=== PATIENT | male | born 1955 | race Caucasian/White ===

== ENCOUNTER 2019-11-23 07:21 | Emergency (ER) | payer OTHER ==
[~2019-11-23] VITALS: Ht 190.5 cm; Wt 140.6 kg
[2019-11-23] MEDS ORDERED: SYNTHROID100 MC1 PO (07:35)
[2019-11-23] MEDS ORDERED: COZAAR 25 MG TA25 M1 PO (07:35)
[2019-11-23] MEDS ORDERED: HYDROCHLOROTHIA25 M2 PO (07:35)
[2019-11-23] MEDS ORDERED: SUPER THERAVIT1 EACH PO (07:36)
[2019-11-23] MEDS ORDERED: CONTRAVE ER 8-1 EACH PO (07:36)
[2019-11-23] MEDS ORDERED: NEURONTIN300 MG PO (07:36)
[2019-11-23] MEDS ORDERED: GLUCOSAMINE1000 MG PO (07:36)
[2019-11-23] MEDS ORDERED: CALCIUM CITRAT250 MG PO (07:37)
[2019-11-23] MEDS ORDERED: ASA81BEC PO (07:37)
[2019-11-23] MEDS ORDERED: VITAMIN D310 MC2 PO (07:38)
[2019-11-23] MEDS ORDERED: ZYRTEC10 M5 PO (07:38)
[2019-11-23 10:23] LABS: ABSOLUTE NEUTROPHILS 3.4 thou/uL (1.4-8.2); BASOPHILS 0.6 % (0.0-2.0); HEMATOCRIT 43.3 % (42.0-52.0); HEMOGLOBIN 14.4 gm/dL (14.0-18.0); MCH 27.2 pg (26.0-34.0); MCHC 33.3 g/dL (28.0-37.0); MCV 81.8 fL (80.0-100.0); MONOCYTES 7.5 % (1.0-8.0); PLATELET COUNT 208 thou/uL (150-400); POLYS 54.9 % (36.0-66.0); RBC 5.29 mil/uL (4.50-6.00); RDW 14.9 % (10.5-14.5); WBC 6.2 thou/uL (4.0-11.0)
[2019-11-23 10:27] LABS: CALCIUM 8.6 mg/dL (8.5-10.1); CREATININE 1.1 mg/dL (0.7-1.3); POTASSIUM 3.8 mmol/L (3.5-5.1)
[2019-11-23 10:56] LABS: URINE BILIRUBIN NEGATIVE (Negative); URINE BLOOD 3+ (Negative); URINE CLARITY CLOUDY; URINE COLOR YELLOW; URINE GLUCOSE-RANDOM* NEGATIVE (Negative); URINE KETONES NEGATIVE (Negative); URINE LEUKOCYTES-REFLEX NEGATIVE (Negative); URINE NITRITE-REFLEX NEGATIVE (Negative); URINE PROTEIN (DIPSTICK) NEGATIVE (Negative); URINE SPECIFIC GRAVITY >= 1.030 (1.005-1.035); URINE UROBILINOGEN 0.2 E.U./dl (0.2-1.0)
[2019-11-23 11:16] LABS: CALCIUM OXALATE 0-3 Few /LPF (None Seen); CASTS None Seen /LPF (None Seen); SQUAMOUS None Seen /LPF (0-3); URINE WBC-REFLEX 0-5 Rare /HPF (0-5)
[2019-11-23 11:17] LABS: AMORPHOUS URATES Many /LPF (None Seen); BACTERIA-REFLEX 1-9 Few /HPF (None Seen); URINE RBC 0-2 Rare /HPF (0-2)
[2019-11-23] MEDS ORDERED: NORCO 5-325 TA1 EAC1 PO (11:58)
[2019-11-23] MEDS ORDERED: ZOFRAN ODT4 MG PO (11:58)
[2019-11-23] MEDS ORDERED: FLOMAX0.4 MG PO (11:58)
[2019-11-23 12:06] VITALS: BP 152/83
== END 2019-11-23 12:13 | disposition home or self-care (01) ==
LOC: ER 07:21
PROVIDERS: Emergency Medicine
DX: N20.1 Calculus of ureter (principal)

== ENCOUNTER → 2020-05-13 | Outpatient (CLI) | payer OTHER ==
[~2020-05-13] MED LIST: ASA81BEC PO; CALCIUM CITRAT250 MG PO; CONTRAVE ER 8-1 EACH PO; COZAAR 25 MG TA25 M1 PO; FLOMAX0.4 MG PO; GLUCOSAMINE1000 MG PO; HYDROCHLOROTHIA25 M2 PO; NEURONTIN300 MG PO; NORCO 5-325 TA1 EAC1 PO; SUPER THERAVIT1 EACH PO; SYNTHROID100 MC1 PO; VITAMIN D310 MC2 PO; ZOFRAN ODT4 MG PO; ZYRTEC10 M5 PO
== END ==
LOC: CAT 15:51
PROVIDERS: ATTEND Family Medicine
DX: N28.1 Cyst of kidney, acquired (principal); N20.0 Calculus of kidney; K40.90 Unilateral inguinal hernia, without obstruction or gangrene, not specified as recurrent; M47.815 Spondylosis without myelopathy or radiculopathy, thoracolumbar region

== ENCOUNTER → 2020-05-20 | Outpatient (CLI) | payer OTHER | LOC: LAB 12:15 | PROVIDERS: ATTEND Anesthesiology | DX: Z01.812 Encounter for preprocedural laboratory examination (principal); Z20.828 Contact with and (suspected) exposure to other viral communicable diseases ==

== ENCOUNTER 2021-02-23 15:57 | Emergency (ER) | payer OTHER ==
[~2021-02-23] VITALS: Ht 190.5 cm; Wt 145.2 kg
[2021-02-23 16:18] LABS: URINE BILIRUBIN NEGATIVE (Negative); URINE BLOOD TRACE (Negative); URINE CLARITY CLEAR; URINE COLOR YELLOW; URINE GLUCOSE-RANDOM* NEGATIVE (Negative); URINE KETONES NEGATIVE (Negative); URINE LEUKOCYTES-REFLEX NEGATIVE (Negative); URINE NITRITE-REFLEX NEGATIVE (Negative); URINE PROTEIN (DIPSTICK) NEGATIVE (Negative)
[2021-02-23 18:26] LABS: ABSOLUTE NEUTROPHILS 4.1 thou/uL (1.4-8.2); BASOPHILS 0.4 % (0.0-2.0); EOSINOPHILS 6.2 % (0.0-3.0); HEMATOCRIT 39.9 % (42.0-52.0); HEMOGLOBIN 13.4 gm/dL (14.0-18.0); LYMPHOCYTES 27.3 % (24.0-44.0); MCH 26.3 pg (26.0-34.0); MCHC 33.7 g/dL (28.0-37.0); MCV 78.1 fL (80.0-100.0); MONOCYTES 8.3 % (1.0-8.0); PLATELET COUNT 224 thou/uL (150-400); POLYS 57.8 % (36.0-66.0); RBC 5.11 mil/uL (4.50-6.00); RDW 15.3 % (10.5-14.5); WBC 7.1 thou/uL (4.0-11.0)
[2021-02-23 18:30] LABS: CALCIUM 8.4 mg/dL (8.5-10.1); CREATININE 1.1 mg/dL (0.7-1.3); POTASSIUM 3.3 mmol/L (3.5-5.1)
[2021-02-23] MEDS ORDERED: HYDROCODON-ACE1 EAC7 PO (19:35)
[2021-02-23 19:39] VITALS: BP 158/89
== END 2021-02-23 19:40 | disposition home or self-care (01) ==
LOC: ER 15:57
PROVIDERS: Emergency Medicine; Nurse Practitioner
DX: N20.1 Calculus of ureter (principal); I10 Essential (primary) hypertension; Z87.442 Personal history of urinary calculi; Z98.84 Bariatric surgery status; Z98.890 Other specified postprocedural states; Z79.899 Other long term (current) drug therapy; Z79.82 Long term (current) use of aspirin

== ENCOUNTER 2021-07-20 20:55 | Emergency (ER) | payer OTHER ==
[~2021-07-20] VITALS: Ht 193 cm; Wt 140.6 kg
[~2021-07-20 20:55] MED LIST changes: +HYDROCODON-ACE1 EAC7 PO
[2021-07-20 21:06] LABS: URINE BILIRUBIN NEGATIVE (Negative); URINE BLOOD NEGATIVE (Negative); URINE CLARITY CLEAR; URINE COLOR YELLOW; URINE GLUCOSE-RANDOM* NEGATIVE (Negative); URINE KETONES NEGATIVE (Negative); URINE LEUKOCYTES-REFLEX NEGATIVE (Negative); URINE NITRITE-REFLEX NEGATIVE (Negative); URINE PROTEIN (DIPSTICK) NEGATIVE (Negative); URINE SPECIFIC GRAVITY 1.015 (1.005-1.035)
[2021-07-20 21:56] LABS: HEMATOCRIT 41.3 % (42.0-52.0); HEMOGLOBIN 13.3 gm/dL (14.0-18.0); MCH 25.5 pg (26.0-34.0); MCHC 32.2 g/dL (28.0-37.0); MCV 79.2 fL (80.0-100.0); RBC 5.22 mil/uL (4.50-6.00); RDW 15.7 % (10.5-14.5); WBC 9.2 thou/uL (4.0-11.0)
[2021-07-20 22:10] LABS: ALBUMIN 3.4 g/dL (3.4-5.0); CALCIUM 8.2 mg/dL (8.5-10.1); CREATININE 1.1 mg/dL (0.7-1.3); TOTAL BILIRUBIN 0.7 mg/dL (0.2-1.0); TOTAL PROTEIN 6.5 g/dL (6.4-8.2)
[2021-07-20 22:20] LABS: POTASSIUM 5.3 mmol/L (3.5-5.1)
[2021-07-20] MEDS ORDERED: NORCO5 PO (22:51)
[2021-07-20 22:57] VITALS: BP 145/90
== END 2021-07-20 23:08 | disposition home or self-care (01) ==
LOC: ER 20:55
PROVIDERS: Nurse Practitioner Family
DX: R10.9 Unspecified abdominal pain (principal); I10 Essential (primary) hypertension; Z79.82 Long term (current) use of aspirin; Z79.899 Other long term (current) drug therapy; Z87.442 Personal history of urinary calculi; Z98.84 Bariatric surgery status

== ENCOUNTER → 2021-08-17 | Day surgery (SDC) | payer OTHER ==
[~2021-08-17] VITALS: Ht 193 cm; Wt 140.6 kg
[~2021-08-17] MED LIST changes: +HYDROCHLOROTH12.5 M2 PO; +LOSARTAN POTAS100 MG PO; +NORCO5 PO; +SYNTHROID50 MCG PO; +TAMSULOSIN HCL0.4 MG PO; +TRAZODONE HCL50 MG PO; +VITAMIN B-1250 MC2 PO; +VITAMIN D350 MC3 PO
[2021-08-17 09:02] LABS: CALCIUM 8.2 mg/dL (8.5-10.1); POTASSIUM 3.7 mmol/L (3.5-5.1)
[2021-08-17 09:13] VITALS: BP 146/94
[2021-08-17 11:03] VITALS: BP 146/94
--- NOTE | 2021-08-18 11:11 | EKG ---
[place] [address] [facility] [place] [address] ELECTROCARDIOGRAM REPORT Name: SHAYNE MAR Room #: REG [facility].#: [id number] Admission: 08/17/21 Attend Phys: Florida Schroeder MD Discharge: Date of : 57 Report #: [id number] [facility] Test Date: 2021-08-17 Test Time: 08:53:46 Pat Name: SHAYNE MAR Department: Room: Gender: Custodial Foreman: : 1955 Requested By: Marysol Loera Order Number: [id number] MD: Gulshan Sanders Measurements Intervals [place] Rate: 65 P: 27 [place]: 189 QRS: 33 QRSD: 178 T: -13 QT: 460 QTc: 479 Interpretive Statements Sinus rhythm Right bundle branch block No previous ECG available for comparison Electronically Signed On 08-18-2021 11:11:22 LIVING SKILLS ADVISOR by Gulshan Sanders [email or web address] <ELECTRONICALLY SIGNED> By: Gulshan Sanders MD, [facility] 08/18/21 1111 [id number] Gulshan Sanders MD, FAC /EPI
--- NOTE | 2021-08-18 14:47 | O ---
[facility] [place] [address] OPERATIVE REPORT Name: SHAYNE MAR Room #: REG [facility] M..#: [id number] Admission: 08/17/21 Attend Phys: Florida Schroeder MD Discharge: Date of : 57 Report #: [id number] THIS REPORT FOR: cc: Geraldo Rubio James A. DO Hertzig, Lindsay L. MD ~ DATE OF SERVICE: 08/17/2021 SURGEON: Florida Schroeder MD NURSES DIRECTOR: None. PREOPERATIVE DIAGNOSIS: Left proximal ureteral stone. POSTOPERATIVE DIAGNOSIS: Left proximal ureteral stone. PROCEDURES PERFORMED: 1. Cystoscopy. 2. Left retrograde pyelogram. 3. Left ureteroscopy with holmium laser lithotripsy and basket stone extraction. 4. Left double-J ureteral stent placement. ESTIMATED BLOOD LOSS: None SPECIMENS: Left ureteral stone. COMPLICATIONS: None. DRAINS: A 6 x 30 double-J ureteral stent on a dangle. NARRATIVE OF EVENTS: After proper patient identification, an informed consent was obtained, the patient was brought to the operative suite and anesthesia was induced. He was prepped and draped in the usual sterile fashion, in dorsal lithotomy position. After a surgical time-out, we began with rigid cystoscopy. The anterior urethra was without abnormalities. Prostatic urethra showed bilobar hypertrophy, which was obstructive appearing in nature. Upon entering the bladder, pancystoscopy was performed. The ureteral orifices were orthotopic bilaterally. No mucosal lesions were seen. We turned our attention to the left ureteral orifice. An open-ended catheter was used to perform a retrograde study. This outlined the collecting system well. There was very mild hydronephrosis proximally. It was difficult to identify a stone or clear filling defect. I then advanced a second wire into the renal pelvis, which met no resistance. I advanced the second wire followed by a 12/14 access sheath. I then advanced the digital ureteroscope and identified a barfield-appearing calculus within the proximal ureter consistent with the patient's preoperative imaging. [facility] [address] [place] [address] OPERATIVE REPORT Name: SHAYNE MAR Room #: REG [facility] M.R.#: [id number] Admission: 08/17/21 Attend Phys: Florida Schroeder MD Discharge: Date of : 57 Report #: [id number] I used a holmium laser fiber to fragment this into multiple pieces. All those pieces were then basketed free. The scope and access sheath were withdrawn. The ureter was intact throughout its length. The remaining sensor wire was then used to advance a 6 x 30 double-J ureteral stent. There was good curl of the stent in the renal pelvis as well as the bladder upon deployment. The stent was left on a dangle to facilitate removal at a later date. These findings were shared with his at the completion of the case. He tolerated the procedure well and was transferred to the recovery area in stable condition. <ELECTRONICALLY SIGNED> By: Florida Schroeder MD 08/18/21 1447 0959 1050 Florida Schroeder MD /nt
--- NOTE | 2021-08-22 16:06 | PATH ---
[facility] [address] [place] [address] PATHOLOGY RPT PROCEDURE Name: JETHRO MAR Room #: REG [facility] M.R.#: [id number] Admission: 08/17/21 Date of : 57 Discharge: Report #: [id number] Path Case #: [id number] [facility] Accession Number: [id number] . 01 Material submitted: . ureter - LEFT URETERAL STONE. Modifiers: left . 01 Clinical history: . CYSTO W/ RETROGRADES, STONE MANIPULATION CYSTO, STONE MANIPULATION, LITHOTRIPTER, L.... . 02 Diagnosis: Left ureteral calculi: - Consistent with calculi. - The specimen is sent out for further processing. Report pending outside analysis with results to follow in an addendum. LBQ 08/17/2021 1555 Local . 02 Addendum: . Outside report received from [facility], [address] [place] [address], [address], on case [id number], labeled with their number [id number], dated 08/22/2021. . Stone Analysis Report . Stone Composition Composition (percent) Calcium Oxalate Monohydrate 90 Calcium Oxalate Dihydrate 8 Calcium Phosphate Carbonate 2 TOTAL: 100 . . The stone is submitted in fragmented form with no discernible core. It is brown and barfield in color, weighs approximately 40 milligrams and displaces less than 0.1 cc of distilled water. THE CALCULUS IS COMPOSED OF A MIXTURE OF CALCIUM OXALATE MONOHYDRATE (WHEWELLITE), CALCIUM OXALATE DIHYDRATE (WEDDELITE) AND CALCIUM PHOSPHATE CARBONATE (CARBONATE-APATITE). . . . . . Johnny Blackburn MD [employer] Operator Helper . . A complete copy of the [place] [address] PATHOLOGY RPT PROCEDURE Name: JETHRO MAR Room #: REG [facility].#: [id number] Admission: 08/17/21 Date of : 57 Discharge: Report #: [id number] Path Case #: [id number] . Technical and Professional services for the special studies performed by [facility], [address] [place] [id number]. . (ANK:medhat 08/22/2021) . AZJ/08/22/2021 Addendum Electronically Signed by Marilu Szymanski MD PATHOLOGIST . 02 Electronically signed: . Marilu Szymanski MD, Pathologist NPI- [id number] . 01 Gross description: . The specimen is received fresh, labeled "Jethro Koch, left ureteral stone". Received are multiple dark barfield-yellow calculi ranging from 0.3 x 0.2 x 0.2 cm to 0.4 x 0.3 x 0.2 cm. The specimen is forwarded to sendouts for further processing. ([facility]; 08/17/2021) [facility] 08/17/2021 1627 [facility] . 02 Pathologist provided ICD-10: N20.1 . 02 CPT . 868810 Specimen Comment: A courtesy copy of this report has been sent to [phone], [phone] Specimen Comment: [id number] Specimen Comment: Report sent to / DR CARRASCO Specimen Comment: A duplicate report has been generated due to demographic updates. Performed at: 01 [facility] [address] [place] [address] [address], [place], [place] [id number] MD Varghese Mondragon MD Phone: [phone] Performed at: [address] [facility] [id number] MD Marilu Szymanski MD Phone: [phone]
== END | disposition home or self-care (01) ==
LOC: OR 07:39
PROVIDERS: Student in an Organized Health Care Education/Training Program; ATTEND Urology
DX: N20.1 Calculus of ureter (principal); I10 Essential (primary) hypertension; K21.9 Gastro-esophageal reflux disease without esophagitis; Z98.890 Other specified postprocedural states; Z79.899 Other long term (current) drug therapy; Z20.822 Contact with and (suspected) exposure to COVID-19; Z98.84 Bariatric surgery status; Z87.442 Personal history of urinary calculi
CPT/HCPCS: 50010; 50101; 50164; 51767; 53331; 56674; 56815; 57160; 58510; 58565; 58732; 62110; 62900; 70005

== ENCOUNTER → 2021-09-29 | Outpatient (CLI) | payer OTHER | LOC: ULTRA 09:50 | PROVIDERS: ATTEND Urology | DX: N28.1 Cyst of kidney, acquired (principal); N32.89 Other specified disorders of bladder; N20.1 Calculus of ureter ==